=== PATIENT | female | born 1955 | race Caucasian/White ===

== ENCOUNTER 2021-06-14 15:05 | Emergency (ER) | payer OTHER ==
[~2021-06-14] VITALS: Ht 162.6 cm; Wt 77.1 kg
[2021-06-14 20:28] VITALS: BP 141/62
[2021-06-15] MEDS ORDERED: METFORMIN HCL500 M3 PO (01:01)
--- NOTE | 2021-06-15 07:30 | EKG ---
[address] [address] ELECTROCARDIOGRAM REPORT Name: FERNANDOARLETTE [facility] [id number] Admission: 06/14/21 Attend Phys: Discharge: 06/14/21 Date of : 57 Report #: [id number] [facility] ED Test Date: 2021-06-14 Test Time: 15:11:54 Pat Name: ARLETTE KING Department: Room: Gender: F Insurance Attorney: IG : [id number] Requested By: Eliseo Verdugo Order Number: [id number] MD: Ap Merino Measurements Intervals [place] Rate: 57 P: 45 WY: 151 QRS: 17 QRSD: 133 T: 32 QT: 450 QTc: 439 Interpretive Statements Sinus rhythm Right bundle branch block No previous ECG available for comparison Electronically Signed On 06-15-2021 7:29:48 CDT by Ap Merino [email or web address] <ELECTRONICALLY SIGNED> By: Ap Merino MD, [facility] 06/15/21 0729 10 1511 Ap Merino MD, FACC /EPI
== END 2021-06-14 20:28 ==
LOC: ER 15:05
PROVIDERS: Emergency Medicine
DX: F32.9 Major depressive disorder, single episode, unspecified (principal); Z20.822 Contact with and (suspected) exposure to COVID-19; Z88.5 Allergy status to narcotic agent; Z88.0 Allergy status to penicillin; Z88.2 Allergy status to sulfonamides; Z91.040 Latex allergy status

== ENCOUNTER 2021-06-14 16:28 | Inpatient (IN) | payer OTHER ==
[~2021-06-14] VITALS: Ht 162.6 cm; Wt 75.7 kg
[2021-06-14 20:30] VITALS: BP 173/82
[2021-06-15] MEDS ORDERED: METFORMIN HCL500 M3 PO (01:01)
--- NOTE | 2021-06-15 01:51 | NUR ---
Arrived on [facility] foor accompanied by x1 staff from [place] ED via wheel chair. Admission DX MDD with SI. Comes to [facility] from [facility] ED where she reports thoughts of running her car into a fatal accident or overdosing on medication. Reports she drove the 21 hours from [place] to [facility] and went directly to the ER due to her insurance only allowing [place] treatment to bet her meds balanced. Believes her high cholesterol is interfering with her psych meds and the prescribed Statin drugs gie her rage. Skin is C/D/I and warm and dry. Reports walks several miles per day. Pulses in extremities are present x4Q. Patient signed herself in to inpatient psychiatric care and resports: Depression "I feel worthless" Anxiety "lack of communication while she was in the ED waiting on Stat PCR labs" Denies SI/HI/ALFRED/HV. Well healed scar present on back from previous surgery. L elbow has a delosis scar. Wears upper and lower dentures. Denies hearing aide, glasses. Reports no fear for safety in her domestic life, however does not currently have a place to live in the [place] area. Hobby is home remodeling. Low fall risk and bed in low position, bathrom light on. Will continue to monitor for safety and comfort.
[2021-06-15 04:00] LABS: HEMATOCRIT 40.4 % (37.0-47.0); HEMOGLOBIN 13.5 gm/dL (12.0-15.0); MCH 29.7 pg (26.0-34.0); MCHC 33.6 g/dL (28.0-37.0); MCV 88.5 fL (80.0-100.0); RBC 4.56 mil/uL (4.20-5.00); RDW 12.9 % (10.5-14.5); WBC 6.3 thou/uL (4.0-11.0)
[2021-06-15 04:46] LABS: ALBUMIN 3.5 g/dL (3.4-5.0); CALCIUM 8.7 mg/dL (8.5-10.1); CREATININE 0.9 mg/dL (0.6-1.0); POTASSIUM 3.9 mmol/L (3.5-5.1); TOTAL BILIRUBIN 0.5 mg/dL (0.2-1.0); TOTAL PROTEIN 6.5 g/dL (6.4-8.2)
[2021-06-15 05:01] LABS: CHOLESTEROL 279 mg/dL (<200); HDL CHOLESTEROL 44 mg/dL (>40); LDL CHOLESTEROL 205 mg/dL (<100); TC:HDL 6.3 Ratio (Not establshd); TRIGLYCERIDE 153 mg/dL (<150); VLDL 31 mg/dL (<40)
[2021-06-15 05:04] LABS: SERUM ASSESSMENT Clear
[2021-06-15 09:57] VITALS: BP 122/72
--- NOTE | 2021-06-15 14:26 | NUR ---
Patient requesting to leave AMA. This nurse met with patient. Provided emotional support and spoke of reasoning for admission. Patient stated that she feels more suicidal than before she came in. When asked what her plan was, patient stated she was going to "Sven Dwight it". When asked what that meant, she stated "shove pills down my throat and hang myself". She then stated "that is the step I missed last time I tried to kill myself". Discussed with TRISTEN and Dr. Morrissey. 96 hour hold paperwork completed. Patient read her rights regarding involuntary hold and given a copy. Patient angry and cursing. Stating that nurse made her say that. TRISTEN faxing involuntary paperwork to Nick [facility]ila.
--- NOTE | 2021-06-15 15:57 | NUR ---
Assumed pt care at 0700. pt was alert and oriented x4. Assessments completed, vss. Lungs clear, active bowel sound. Denies si/hi upon assessments. NO c/o pain. Ambulates with a steady gait. Took meds whole, no difficulty noted. No sign of acute distress upon assessments. During assessments pt stated that she did not belong to Geriatric unit, pt continued by saying the census we have up here is too old for her. Pt stated she have a problem accepting she is old. Pt stated she rather be put in a behavioral unit with younger adult. Dr Murphy was notified of pt comments. Pt refused attending group, Senior Accounts Payable Clerk assessed pt. Pt stated that she walks 5 miles a day and the group exercise was for custodial pt. At this time pt is in her room resting. WIll continue to monitor.
--- NOTE | 2021-06-15 17:34 | NUR ---
@ [address] Carver met with the Pt. Pt had informed nursing that she wanted to leave. Dr. Carver informed the Pt that discharge would be AMA. Pt's concerns about treatment in the ER were discussed. Also Pt did decide that she would stay to recieved treatment. During this meeting Pt denied SI/HI. Pt stated she drove from [place] to and was living with a friend. However Pt had located a motel is [place] she could stay for $600 a month. Pt reported being participating in out pt mental health services in [place]. Pt did not have any services set up in [facility] [place] [facility] at this time. Pt reported pass cocaine and meth use. Pt stated she stopped using drugs in 2006. Pt has had 4 prior psychiatric stays. Pt attempted has attempted suicide by OD in 2005. Pt had another suicide attempt in 2016. Pt had no other concerns at this time. SW will continue to follow
[2021-06-15 20:01] VITALS: BP 101/61
--- NOTE | 2021-06-16 07:34 | NUR ---
06-15-21 CARE TRANSFERRED 1899. LATER PT AAOX4, VSS, RR EVEN AND NONLABRED ON RA. PT DENIES PAIN AND SI/HI. PT PRESENTED CALM AND COOPERATIVE, AND WILLING TO ENGAGE IN COMMUNICATION. DURING COMMUNICATION PT BECAME ANXIOUS, BLADE SHARPENER ABLE TO REDIRECTED PT. DURING MEDICATION ADMIN PT HAD NO DIFFICULTIES. PT WILL COTNINE TO BE MONITOR PER [facility] PROTOCOL.
[2021-06-16 09:42] VITALS: BP 111/52
--- NOTE | 2021-06-16 10:47 | NUR ---
New admit to [facility]. Hx bipolar, HDL, SI, depression, anxiety. Wt adequate, intake adequate. Note pt reports walking daily prior admit. Hyperlipidemia- Chol 279, trigs 153, LDL 205-pt had stopped taking statin and zetia due to reports of worsening behavior symptoms. A1C 6-on metformin. Team meeting today and possible discharge tomorrow. Low nutrition risk
--- NOTE | 2021-06-16 14:34 | NUR ---
Assumed pt care at 0700. pt was alert and oriented x4. Assessments completed, vss. Lungs clear, active bowel sound. Denies si/hi, denies pain at this time. Tooks meds whole with thin liquid, no difficulty noted.Ambulates with a steady gait. No sign of acute distress noted upon assessments. Pt was happy, calm and cooperative this shift. Pt stated she is in good spirit and she understand she is here to get her meds adjusted. Pt goals was to participate in groups today. Pt is continent of bowel and bladder. Makes need known to staff. AT this time pt is in groups. Will continue to monitor.
[2021-06-16 19:11] VITALS: BP 140/70
--- NOTE | 2021-06-17 05:05 | NUR ---
06-17-21 CARE TRANSFERRED 1899. LATER PT AAOX4, VSS, RR EVEN AND NONLABORED ON RA. PT DENIES SI/HI. PT REPORTS IN RIGHT SHOULDER AND RATES PAIN AT 6 ON 0-10 SCALE. PT PRESENTS HAPPY, CALM AND COOPERATIVE. DURING MEDICATION PT HAD NO DIFFICULTIES TAKING WHOLE WITH WATER. LATER ADJUSTED PT BED FOR COMFORT. PT WILL CONTINUE TO BE MONITOR PER [facility] PROTOCOL.
--- NOTE | 2021-06-17 09:08 | H ---
[facility] [place] [address] HISTORY AND PHYSICAL Name: ARLETTE KING Room #: 524B-B ADM IN M.R.#: [id number] Admission: 06/14/21 Attend Phys: Pernell Morrissey DO Discharge: Date of : 57 Report #: [id number] THIS REPORT FOR: cc: Physician not on staff Physician not on staff Pernell Morrissey DO ~ DATE OF SERVICE: 06/14/2021 INPATIENT PSYCHIATRIC EVALUATION ATTENDING PSYCHIATRIST: Pernell Morrissey DO MEDICAL CONSULTANTS: Loren Burciaga APRN; and Chirag Win MD, and his hospitalist team. SOURCES OF INFORMATION: Records from [facility], interview with the patient, [facility] electronic medical records here at [facility]. CHIEF COMPLAINT: Depression and suicidal thoughts. HISTORY OF PRESENT ILLNESS: This is a 65-year-old female who is a serial divorcee, as she has been and x4. The patient has 2 adult children who are not involved in her life. From [facility] records and the patient's testimony, she has a strong history of bipolar disorder. She reports this is her fifth adult lifetime psychiatric hospitalization. She reported to [facility] that her symptoms have worsened since being placed on a statin. The patient very recently relocated from [place] to the [facility]. She states her belongings are with a friend in [place], [place], and her vehicle is at [facility] and she does not have a place to live, so I think she would be considered homeless by most definitions. The patient had been seeing a nurse practitioner, I believe in [place], who prescribed Xanax, but the patient states she takes 10 pills a month. She did not have a specific plan on how she would harm herself, but feels overwhelmed. In the ER, she denied any fevers, chills, cough. No nausea, vomiting or diarrhea or other complaints. REVIEW OF SYSTEMS: From the [facility] ER on 06/13/2021: CONSTITUTIONAL: Does not complain of recent fevers, chills, sweatiness or substantial change in weight. HEENT: Vision: Does not complain of recent visual changes. Ear, nose and throat: Does not complain of recent cold symptoms, sore throat, or ear pain. RESPIRATORY: Does not complain of recent change in breathing, dyspnea or cough. CARDIOVASCULAR: Does not complain of recent chest pain, palpitations, syncope or dizziness. GASTROINTESTINAL: Denies abdominal pain, constipation, diarrhea, nausea or [facility] [address] [place] [address] HISTORY AND PHYSICAL Name: ARLETTE KING Room #: 524B-B ADM IN M.R.#: [id number] Admission: 06/14/21 Attend Phys: Pernell Morrissey DO Discharge: Date of : 57 Report #: [id number] vomiting. GENITOURINARY: Denies change in urination habits or existence of hematuria. EXTREMITIES: Does not complain of new pain and swelling. BACK: Denies back pain. NEUROLOGIC: Denies headaches, extremity numbness or tingling. Does not complain of acute changes in coordination or speech. SKIN: Denies rash or areas of discoloration. PSYCH: Depression. PAST MEDICAL HISTORY: Includes arthritis, chronic back pain, numbness and tingling. PSYCHIATRIC HISTORY: Bipolar 1 disorder including periods of major depression. PAST SURGICAL HISTORY: Includes fusion spine lumbar, 06/28/2016. She has also had an appendectomy, arthroplasty, a total hysterectomy, tonsillectomy, and tubal ligation. HOME MEDICATIONS: Home med list is questionably ____ of Xanax, Trileptal 300 mg at bedtime, metformin 500 mg daily, ziprasidone 40 mg oral. ALLERGIES: LATEX, CODEINE, PENICILLIN, SULFA DRUGS. She states her Latex is not really an allergy. SOCIAL HISTORY: Alcohol listed from the ER 1-2 times per week. Denies current substance use. States she has been sober from illicit drugs like cocaine and meth since 2008. Smoking since 2008. FAMILY HISTORY: Diabetes mellitus in father, sister, and brother. Heart disease in mother. Hypertension in mother. Mental illness in a child. Stroke in a brother. LABORATORY DATA: From [facility]: White count 7.6, H and H 13.6 and 41.6, platelet count 316. Sodium 140, potassium 3.5, chloride 109, bicarbonate 18, calcium 9.0, magnesium 2.1, amylase 43, lipase 53, alkaline phosphatase 97, ALT 24, AST 17, total bilirubin 0.4, glucose 139, BUN 21, creatinine 0.9. Estimated GFR greater than 60. Salicylate is negative. Ethanol negative. There is a behavioral health assessment order done by Chary Lovett, [facility]. It stated that 65-year-old female presents with SI with plan to crash her car or overdose on pills. The patient states she feels impulsive and has diagnosis of bipolar disorder, has been having trouble with medication management due to her cholesterol. She has been off her meds, except she takes her prescribed Xanax at night to calm down. She states she is coming to [facility] [address] [place] [address] HISTORY AND PHYSICAL Name: ARLETTE KING Room #: 524B-B ADM IN M.R.#: [id number] Admission: 06/14/21 Attend Phys: Pernell Morrissey DO Discharge: Date of : 57 Report #: [id number] [place] where she knows her insurance coverage will cover the care. She needs to get her meds straight. The patient is moving her to help her with SI and bipolar disorder. She is staying with a friend. She is on disability. Interestingly, she stated disability was both her physical and mental health concerns. Additional notes from manager social and talking with the patient are as follows: She denied history of physical, sexual or emotional abuse. PAST PSYCHIATRIC HOSPITALIZATIONS: Include Jenise Spivey in 2006. Guera Yanez in 2015 [facility] in 2015 and 2017. She had 2 prior suicide attempts, 2006 with overdose on pills, and in 2017. She has 7 brothers and sisters. She gets $1530 a month from social security disability. We believe she previously had services at [facility]. She wants to participate in outpatient psychotherapy. She was born and raised in [place], [place], also in [place], [place]. She has high school level of education. She has been massage therapist previously. Again, she has two adult kids, but they are not involved. VITAL SIGNS: Temperature 36.8, pulse 53, respirations 18, BP 122/70, O2 sat 98%. BMI 28.3, weight 74.43 kg, height 160.56 cm. Repeat CBC at [facility] was within normal limits. Chemistries within normal limits. Lipids, triglycerides 153, cholesterol 279, LDL 205. TSH normal 0.945. Her COVID-19 serology was not detected. PHYSICAL EXAMINATION: Slightly unkempt. Normal gait and station. MENTAL STATUS EXAMINATION: This is a well-developed female, appearing stated age. Attention fair. Concentration fair. Speech pushed. Thought process: Linear and goal directed. Thought content: Focused on ameliorating her mood. She denied suicidal or homicidal ideations. No auditory, visual, or tactile hallucinations. Denied helplessness, hopelessness. Memory not formally tested. Insight and judgment limited. Fund of knowledge at least average. FORMULATION: A 65-year-old female presenting to [facility] and transferred to us for concerns of mood instability, variable SI. DIAGNOSES: At this time, bipolar 1 disorder, most recent episode manic, moderate degree. 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 A number of general medical issues, including a history of obesity, hyperlipidemia, insomnia. PLAN: Admit the patient in Senior Behavioral Health Unit at [facility]. Hospitalist consult to evaluate and stabilize, perform a 12-lead EKG in anticipation of lithium therapy. Start lithium carbonate 300 mg b.i.d., blood level in 4 days. Other medications, she is on Trileptal 300 mg at bedtime, [facility] [address] [place] [address] HISTORY AND PHYSICAL Name: ARLETTE KING Room #: 524B-B ADM IN M.R.#: [id number] Admission: 06/14/21 Attend Phys: Pernell Morrissey DO Discharge: Date of : 57 Report #: [id number] which I will consider discontinuing in light of lithium therapy. She is on topiramate 25 mg daily, probably for migraine headaches. Alprazolam 0.25 mg p.o. b.i.d., which I am actually going to discontinue now. The patient is voluntary. STRENGTHS: She is insured. WEAKNESSES: Recent transplant, limited coping skills A special note; before I dictated this, the patient had submitted a written request for discharge against medical advice. Her school program director, Traci Ray, is going to speak with her, so I hope she will stay, but otherwise it will be an against medical advice discharge. <ELECTRONICALLY SIGNED> By: Pernell Morrissey DO 06/17/21 0908 1214 1319 Pernell Morrissey DO /nt
[2021-06-17 09:34] VITALS: BP 126/56
--- NOTE | 2021-06-17 12:51 | NUR ---
Assumed pt care at 0700. Pt was alert and oriented x4. Assessments completed, vss. Lung clear, active bowel sound. Denies si/hi, denies pain. Took meds whole, no difficulty noted. Ambulates with a steady gait. Calm and cooperative with care. No sign of acute distress noted upon assessments. PT WALKS ROUND THE UNIT FOR EXCERCISE. Pt expressed that she feels happy today. Ate all meals. upon assessments pt stated she goes 3 -4 days without happy a bowel movement. At this time pt is in the day room will continue to monitor.
[2021-06-17 18:51] VITALS: BP 123/55
--- NOTE | 2021-06-17 22:09 | NUR ---
PATIENT SITTING IN THE COMMON AREA WATCHING TV. PATIENT IS CALM COOPERATIVE AND FOLLOWING COMMANDS. SHE IS AAOX4. REQUESTS TO HAVE HER CLOTHES WASHED. PT DOES EXHIBIT MANIC TENDENCIES WHEN SPEAKING. SHE SPEAKS IN AN ACCLERATED SPEED AND DOESNT PAUSE BETWEEN SENTENCES. SHE STATES THAT SHE IS AWARE THAT SHE IS DOING IT. SHE IS COMPLIANT WITH MEDICATION. SHE AMBULATES WELL ON HER OWN POWER. SHE STATES THAT SHE IS HAVING SOME MILD PAININ HER LOWER EXTREMETIES. STATES THAT IT DOES NOT FEEL LIKE A CRAMP. STATES THAT SHE WILL DRINK MORE WATER.
[2021-06-18 06:16] LABS: HEMATOCRIT 40.6 % (37.0-47.0); HEMOGLOBIN 13.9 gm/dL (12.0-15.0); MCH 30.2 pg (26.0-34.0); MCHC 34.3 g/dL (28.0-37.0); MCV 87.9 fL (80.0-100.0); RBC 4.62 mil/uL (4.20-5.00); RDW 12.9 % (10.5-14.5); WBC 7.3 thou/uL (4.0-11.0)
[2021-06-18 06:34] LABS: CALCIUM 9.3 mg/dL (8.5-10.1); CREATININE 0.9 mg/dL (0.6-1.0); MAGNESIUM 2.4 mg/dL (1.8-2.4); POTASSIUM 4.5 mmol/L (3.5-5.1)
[2021-06-18 08:13] LABS: FOLIC ACID 25.8 ng/mL (8.6-58.9)
[2021-06-18 09:19] VITALS: BP 118/66
--- NOTE | 2021-06-18 14:24 | NUR ---
Alert and orientated X4. Calm, cooperative and compliant, hyperverbal. Denies SI/HI. COVID swab done X 2. Breath sounds clear. Reg HR auscultated. Color pink with brisk capillary refill and palpable peripheral pulses. No edema noted. Independent with voiding. Active bowel sounds over soft, rounded abdomen. States she had BM yesterday. Ambulates with regular, steady gait.
--- NOTE | 2021-06-18 15:09 | NUR ---
SW contacted the Pt's psychiatrist office, [facility] [phone]. TRISTEN left a message for a call back to schedule the appointment with Catia Parker CIGARETTE FILTER INSPECTOR. As of this note there has been no call back SW also contact the Pt's PCP office, [facility], . SW left a message for a call back. As of this note there has been no call back. Pt has an appointment with her therapist, Sue Lujan, on 06/28/2021 @ 11:30 am
[2021-06-18 19:24] VITALS: BP 135/55
--- NOTE | 2021-06-18 23:24 | NUR ---
PATIENT AAOX4. STATES THAT SHE IS HAVING A GOOD DAY. STATES THAT SHE IS STILL HAVING LEG CRAMPS AFTER HAVING MAG-OX AND A DOSE OF ATIVAN. STATES THAT SHE WILL DRINK MORE WATER AND WALK IT OFF. SHE DOES TAKE ALL OF HER MEDICATIONS AND IS CALM AND COOPERATIVE. VSS. NO DISTRESS NOTED. WILL CONTINUE TO MONITOR.
[2021-06-19 07:15] VITALS: BP 140/68
--- NOTE | 2021-06-19 09:22 | NUR ---
Alert and orientated X4. Hyperverbal at times. Calm, cooperative and compliant. Denies SI/HI. Breath sounds clear. Routine REHABILITATION PROGRAM MANAGER Covid test done. Reg HR auscultated. Color pink with brisk capillary refill and palpable peripheral pulses. No edema noted. Independent with voiding. Active bowel sounds over soft, rounded abdoment. States she had BM yesterday. Ambulates independently with regular, steady gait.
[2021-06-19 19:30] VITALS: BP 144/69
--- NOTE | 2021-06-19 22:01 | NUR ---
ASSUMED CARE ON 06/19/21 @ 1900, AMBULATES INDEPENDENTLY WITH A STEADY GAIT, TOILETS INDEPENDENTLY. TAKES TRAZADONE @ HS FOR SLEEP AND TYLENOL 650MG @ 2000 FOR 5/10 PAIN IN THE LEGS AND LOWER EXTREMEITES. A&OX4 COOPERATIVE WITH CARE AND COMPLIANT WITH MEDICATION ADMINISTRATION. DENIES SI/HI TODAY. DENIES HALLUCINATIONS, BOTH ALFRED&HV. SOMEWHAT ACELERATED AND MANIC SPEACH NOTED. EDUCATION PROVIDED TO THE BENEFIT OF MAG OX THAT THE PATIENT IS TAKING IN THE A.M. TO ASSIST WITH LEG CRAMPS. WILL CONTINUE TO MONITOR FOR COMFORT AND SAFETY PER [facility] PROTOCOL.
[2021-06-20 10:20] VITALS: BP 149/63
[2021-06-20 10:29] VITALS: BP 149/63
--- NOTE | 2021-06-20 15:36 | NUR ---
Radha was alert and orienteed x4 throughout the day. She voiced some anxiety and stated she felt like she was "rambling". She stated "When I start to stutter that means I'm starting to get manic and that wouldn't be good". Pt believes some of this is due to today being her birthday and wishing she was with her family. She denied SI/HI/ALFRED and remained safe on the unit throughout the day. She is able to make her needs known appropriately and asked for tylenol this morning for for "my legs are jumping", which appeared to be effective as pt stated, "it's better, it comes an goes". Pt was medication and meal complant, without difficulty. She expressed this morning that she was feeling "a little irritable" but stated she was not sure why. She vioced some frustrations with morning group and stated "my problem is I talk too much, that's what I'm working on in therapy right now". Pt is looking forward to discharging tomorrow; will continue to monitor.
[2021-06-20 19:23] VITALS: BP 112/67
[2021-06-20 20:40] VITALS: BP 112/67
--- NOTE | 2021-06-21 03:59 | NUR ---
PATIENT HAS STAYED IN ROOM TONIGHT. SHE HAS BEEN HAPPY AND SMILING AND PLEASANT AND COOPERATIVE. SHE IS LOOKING FORWARD TO DISCHARGING TODAY. SHE WAS GIVEN TYLENOL 650MG FOR BILATERAL KNEE PAIN OF 6/10. THIS SEEMED TO RELIEVE THE PAIN AND SHE WAS ABLE TO SLEEP. SHE DENIES SI/HI/AVH. SHE TOOK HER MEDS WHOLE WITH WATER. SHE AMBULATES WITHOUT ISSUE. ROUTINE ROUNDS TO ASSESS SAFETY AND STATUS OF PATIENT. THE [birth year]TH WAS HER BDAY AND SHE STATES THE BEST GIFT WAS THAT SHE FEELS HERSELF AGAIN AND APPRECIATES ALL THE HELP SHE HAS RECIEVED. SHE STATES SHE WAS ANGRY IN THE BEGINNING BUT UNDERSTANDS AND FEELS MUCH BETTER WITH TREATMENT. BED IN LOW POSITION. CONTINUING TO MONITOR.
[2021-06-21 07:53] VITALS: BP 124/70
[2021-06-21 09:10] VITALS: BP 124/70
[2021-06-21] MEDS ORDERED: TRAZODONE HCL50 MG PO (09:25)
[2021-06-21] MEDS ORDERED: LITHIUM CARBON300 M7 PO (09:25)
[2021-06-21] MEDS ORDERED: B-121000 MC2 PO (09:27)
[2021-06-21 09:36] VITALS: BP 124/70
--- NOTE | 2021-06-21 11:04 | NUR ---
Pt was discharged from [facility] at 1020 and was brought to security to grab belongings. Pt was then escorted to the outpatient pharmacy to pickle maker her medications. Pharmacy stated they were "working on" pt's medications. Staff waited with pt in the outpatient pharmacy until medications were filled. Pt officially left the facility at 1059. Discharge summary was explained/reviewed with pt, all questions answered. Pt was discharged via friend transportation. Pt denied SI/HI/ALFRED prior to discharge.
== END 2021-06-21 10:50 | disposition home or self-care (01) | DRG 885 ==
LOC: SBH
PROVIDERS: Internal Medicine; Nurse Practitioner Family; ADMIT Psychiatry & Neurology Psychiatry; ATTEND Psychiatry & Neurology Psychiatry
DX: F31.13 Bipolar disorder, current episode manic without psychotic features, severe (principal); R45.851 Suicidal ideations; E66.9 Obesity, unspecified; F41.9 Anxiety disorder, unspecified; Z20.822 Contact with and (suspected) exposure to COVID-19; M19.90 Unspecified osteoarthritis, unspecified site; G89.29 Other chronic pain; E78.5 Hyperlipidemia, unspecified; G47.00 Insomnia, unspecified; M54.9 Dorsalgia, unspecified; Z90.49 Acquired absence of other specified parts of digestive tract; Z90.710 Acquired absence of both cervix and uterus; Z88.0 Allergy status to penicillin; Z88.2 Allergy status to sulfonamides; Z88.6 Allergy status to analgesic agent; Z91.040 Latex allergy status; Z83.3 Family history of diabetes mellitus; Z82.49 Family history of ischemic heart disease and other diseases of the circulatory system; Z82.3 Family history of stroke; Z87.891 Personal history of nicotine dependence; Z68.28 Body mass index [BMI] 28.0-28.9, adult; Z23 Encounter for immunization
CPT/HCPCS: 10880